=== PATIENT | male | born 1935 ===

== ENCOUNTER 2023-07-02 04:54 | Day surgery (SDC) | payer OTHER ==
[2023-06-30 07:52] VITALS: BMI 25.0
[2023-07-02 10:08] VITALS: TEMP 98
[2023-07-02 10:22] VITALS: RESP 18
[2023-07-02 10:32] VITALS: BP 128/59; PULSE 74
== END 2023-07-02 10:45 | disposition home or self-care (01) ==
LOC: JASU-ENDO 04:54
PROVIDERS: ATTEND Student in an Organized Health Care Education/Training Program
PROC: 0DB68ZX Excision of Stomach, Via Natural or Artificial Opening Endoscopic, Diagnostic (ICD-10-PCS; 2023-07-02)
PROC: 0DB38ZX Excision of Lower Esophagus, Via Natural or Artificial Opening Endoscopic, Diagnostic (ICD-10-PCS; principal; 2023-07-02 09:00)
DX: K22.2 Esophageal obstruction (principal); K21.00 Gastro-esophageal reflux disease with esophagitis, without bleeding; K44.9 Diaphragmatic hernia without obstruction or gangrene; K29.50 Unspecified chronic gastritis without bleeding; I10 Essential (primary) hypertension
CPT/HCPCS: 88305-TC; 88342-TC